=== PATIENT | male | born 1965 | race Caucasian/White ===

== ENCOUNTER 2019-05-22 15:49 | Emergency (ER) | payer MEDICAID, MEDICARE ==
[2019-05-22 15:57] VITALS: BP 128/72
--- NOTE | 2019-05-22 18:08 | ED Physician Documentation ---
PD HPI OPHTHO - Stated complaint Stated Complaint: R EYE IRRITATION - Chief complaint Chief Complaint: Heent - History obtained from History obtained from: Patient - History of Present Illness Timing - onset: How many days ago (3) Timing - duration: Days (3) Timing - details: Gradual onset, Still present Location: Right Quality / character: Burning, Throbbing, Sharp Associated symptoms: Redness, Swelling. No: Matting, FB sensation, Photophobia, Decreased vision, Loss of vision, Headache Contributing factors: Other (sty in the other eye last week) Similar symptoms before: Diagnosis (sty) Recently seen: Not recently seen - Additional information Additional information: 54-year-old male has had a stye in his left eye last week that seemed to resolve spontaneously he is now developed one in the right eye it is worse and has a head on it as well as a lot of swelling to the lower lid. Review of Systems Constitutional: denies: Fever Eyes: reports: Irritation. denies: Loss of vision, Decreased vision, Photophobia, Discharge Ears: denies: Ear pain Nose: denies: Rhinorrhea / runny nose, Congestion Throat: denies: Sore throat PD PAST MEDICAL HISTORY - Past Medical History Cardiovascular: Hypertension, High cholesterol, [place] Respiratory: None Endocrine/Autoimmune: Type 1 diabetes GI: None : None HEENT: None Psych: None Musculoskeletal: None Derm: None - Past Surgical History Past Surgical History: Yes Cardiovascular: Coronary stent, Pacemaker, AICD - Present Medications Home Medications: Ambulatory Orders Medication Instructions Recorded Confirmed Aspirin [Vish Chewable] 81 mg PO DAILY 12/15/15 09/25/16 Chlorthalidone 25 mg PO DAILY 12/15/15 09/25/16 Lisinopril [Zestril] 10 mg PO BID 12/15/15 09/25/16 Metoprolol Tartrate [Lopressor] 100 mg PO DAILY 12/15/15 09/25/16 Simvastatin [Zocor] 40 mg PO DAILY 12/15/15 09/25/16 Cyclobenzaprine [Flexeril] 10 mg PO TID PRN #20 tablet 09/25/16 HYDROcod/ACETAM 5/325 [[place] 5/325] 1 - 2 ea PO Q6H PRN #15 tablet 09/25/16 Temazepam 15 mg PO DAILY 09/25/16 09/25/16 Warfarin [Coumadin] 1.5 mg PO DAILY 09/25/16 09/25/16 Warfarin [Coumadin] 5 mg PO DAILY 09/25/16 09/25/16 Hydrocodone/Acetaminophen 1 - 2 each PO Q6H PRN #14 tablet 05/22/19 [Hydrocodon-Acetaminophen 5-325] - Allergies Allergies/Adverse Reactions: Allergies Allergy/AdvReac Type Severity Reaction Status Date / Time No Known Drug Allergies Allergy Verified 05/22/19 15:57 - Social History Does the pt smoke?: No Smoking Status: Never smoker Does the pt drink ETOH?: No Does the pt have substance abuse?: No - Immunizations Immunizations are current?: Yes - POLST Patient has POLST: No PD ED PE NORMAL - Vitals Vital signs reviewed: Yes (normal ) - General General: Alert and oriented X 3, No acute distress, Well developed/nourished - HEENT HEENT: Atraumatic, PERRL, EOMI, Other (There is an external sty in the right eye lower lid that causes some swelling to the vik-orbital tissues. There is no involvment of the sclera or the cornea. ) - Neck Neck: Supple, no meningeal sign, No bony TTP - Respiratory Respiratory: No respiratory distress - Derm Derm: Normal color, Warm and dry, No rash - Extremities Extremities: No deformity, No edema - Neuro Neuro: Alert and oriented X 3, dining room hostess 2-12 intact, No motor deficit, No sensory deficit, Normal speech Eye Opening: Spontaneous Motor: Obeys Commands Verbal: Oriented GCS Score: 15 - Psych Psych: Normal mood, Normal affect Results - Vitals Vitals: Vital Signs - 24 hr 05/22/19 15:55 Temperature 36.4 C L Heart Rate 65 Respiratory 14 Rate Blood Pressure 128/72 O2 Saturation 97 Oxygen O2 Source Room air PD MEDICAL DECISION MAKING - ED course Complexity details: considered differential, d/w patient ED course: Stye to the right eye the patient is administered Maxitrol ophthalmic ointment. I have encouraged warm compress. Departure - Departure Disposition: 01 Home, Self Care Clinical Impression: Sty, external Qualifiers: Laterality: right Eyelid: lower Qualified Code(s): H00.012 - Hordeolum externum right lower eyelid Condition: Stable Instructions: ED Hordeolum Follow-Up: Angel Arzola MD [Primary Care Provider] - Prescriptions: Hydrocodone/Acetaminophen [Hydrocodon-Acetaminophen 5-325] 1 - 2 each PO Q6H PRN #14 tablet PRN Reason: pain
[2019-05-22] MEDS ORDERED: NEOMYCIN/POLYMYX/DEXAMETH OPHTH OINT RIGHTEYE STA (18:09)
== END 2019-05-22 18:34 | disposition home or self-care (01) ==
LOC: ED 15:49
DX: H00.012 Hordeolum externum right lower eyelid (principal); I10 Essential (primary) hypertension; E10.9 Type 1 diabetes mellitus without complications; Z79.01 Long term (current) use of anticoagulants; Z79.82 Long term (current) use of aspirin
CPT/HCPCS: 99282; 99284; A9270

== ENCOUNTER 2021-08-29 09:54 | Outpatient (CLI) | payer MEDICARE, MEDICAID ==
--- NOTE | 2021-08-29 11:02 | Ultrasound Report ---
PROCEDURE: Testicle INDICATIONS: TESTICULAR MASS, 2 months TECHNIQUE: Real-time scanning was performed of the scrotum and testicles, with image documentation. Color and p ulse Doppler interrogation was performed of both testicles. COMPARISON: None. FINDINGS: Right: Testicle is normal in size at 4.8 x 1.9 x 2.9 cm, and homogenous in echotexture. Epididymis is normal in overall size and morphology. No hydrocele or varicoceles. Overlying scrotal skin is no rmal in thickness. Left: Testicle is normal in size at 5.1 x 2.4 x 2.9 cm, and homogeneous in echotexture. A 1.9 x 1.5 x 2.1 cm hypoechoic lesion is seen in the epididymal head with internal debris, likely reflecting a s permatocele. Trace hydrocele. No varicoceles. Overlying scrotal skin is normal in thickness. Doppler: Color and pulse Doppler demonstrate normal and symmetric arterial flow in both testicles. IMPRESSION: 1. Cystic lesion in the left epididymal head, favored to represent a spermatocele. Reviewed by: Sukumar Cardenas MD on 08/29/2021 11:01 AM PST Approved by: Sukumar Cardenas MD on 08/29/2021 11:01 AM PST Station ID: [id number]
== END 2021-08-29 09:55 | disposition home or self-care (01) ==
LOC: DI 09:54
PROVIDERS: ATTEND Internal Medicine
DX: N50.9 Disorder of male genital organs, unspecified (principal)

== ENCOUNTER 2021-11-22 21:30 | Outpatient (CLI) | payer MEDICARE, MEDICAID | END 2021-11-22 21:31 | disposition short-term general hospital (02) | LOC: EMS 21:30 | DX: I21.3 ST elevation (STEMI) myocardial infarction of unspecified site (principal) | CPT/HCPCS: A0425; A0427 ==

== ENCOUNTER 2024-05-01 13:26 | Outpatient (CLI) | payer MEDICARE, MEDICAID | END 2024-05-01 23:59 | disposition EMS.NT | LOC: EMS 13:26 | DX: R51.9 Headache, unspecified (principal); Y04.2XXA Assault by strike against or bumped into by another person, initial encounter; Y92.481 Parking lot as the place of occurrence of the external cause ==